=== PATIENT | female | born 1950 | race Caucasian/White ===

== ENCOUNTER 2017-12-25 20:27 | Emergency (ER) | payer MEDICARE ==
[~2017-12-25] VITALS: Ht 160 cm; Wt 112.0 kg
[2017-12-25 20:31] VITALS: BP 137/84
[2017-12-25] MEDS ORDERED: LORazepam 2 MG/ML, 1ML IVPush ONE (21:00)
[2017-12-25] MEDS ORDERED: LORazepam 2 MG/ML, 1ML ONE (21:15)
== END 2017-12-25 23:26 | disposition short-term general hospital (02) ==
LOC: ED 22:55
DX: M54.5 Low back pain (principal); M54.6 Pain in thoracic spine; G89.29 Other chronic pain; Z87.891 Personal history of nicotine dependence
CPT/HCPCS: 72072; 72110; 96374; 99284; J2060

== ENCOUNTER 2018-06-15 18:14 | Inpatient (IN) | payer MEDICARE, MEDICAID ==
[~2018-06-15] VITALS: Ht 167.6 cm; Wt 87.0 kg
[2018-06-15] MEDS ORDERED: FLUO20CA8 PO (18:49)
[2018-06-15] MEDS ORDERED: ASPI-515 PO (18:49)
[2018-06-15] MEDS ORDERED: SENN1TAB8 PO (18:49)
[2018-06-15] MEDS ORDERED: FURO20TA3 PO (18:49)
[2018-06-15] MEDS ORDERED: OLOP2.5D OP (18:49)
[2018-06-15] MEDS ORDERED: SPIR25TA5 PO (18:49)
[2018-06-15] MEDS ORDERED: RIFA550T4 PO (18:49)
[2018-06-15] MEDS ORDERED: HYDROcodone/APAP 5/325 TABLET PO ONE (19:00)
[2018-06-15] MEDS ORDERED: HYDROcodone/APAP 5/325 TABLET ONE (19:03)
[2018-06-15] MEDS ORDERED: MORPHINE SULFATE 4 MG/ML, 1ML ONE (19:50)
[2018-06-15 19:53] LABS: MICROSCOPIC NOT IND
[2018-06-15 19:55] LABS: BASOPHILS # (AUTO) 0.06 x10^3/uL (0-0.1); BASOPHILS % (AUTO) 1 % (0-1); EOSINOPHILS # (AUTO) 0.35 x10^3/uL (0-0.4); EOSINOPHILS % (AUTO) 6 % (1-7); LYMPHOCYTES # (AUTO) 1.17 x10^3/uL (1-3.4); LYMPHOCYTES % (AUTO) 20 % (22-44); MD NO; MEAN CORPUSCULAR HEMOGLOBIN 28.8 pg (27.0-34.8); MEAN CORPUSCULAR HGB CONC 32.9 g/dL (32.4-35.8); MEAN CORPUSCULAR VOLUME 87.4 fL (80-100); MEAN PLATELET VOLUME 6.2 fL (7.4-10.4); MONOCYTES % (AUTO) 12 % (2-9); NEUTROPHILS # (AUTO) 3.51 x10^3/uL (1.8-6.8); NEUTROPHILS % (AUTO) 61 % (42-75); PLATELET COUNT 277 x10^3/uL (130-400); RED BLOOD COUNT 3.43 x10^6/uL (3.82-5.3); RED CELL DISTRIBUTION WIDTH 21.3 % (9.6-15.2)
[2018-06-15] MEDS ORDERED: MORPHINE SULFATE 4 MG/ML, 1ML IVPush ONE (20:00)
[2018-06-15] MEDS ORDERED: SODIUM CHLORIDE FLUSH 10ML SYR IVF ONE (20:00)
[2018-06-15 20:01] LABS: CULTURE INDICATED? NO
[2018-06-15 20:02] LABS: ALBUMIN 2.6 g/dL (3.4-5.0); ANION GAP 8 mmol/L (5-15); CALCIUM 8.4 mg/dL (8.5-10.1); CHLORIDE 105 mmol/L (98-107)
[2018-06-15 20:26] LABS: INTERNATIONAL NORMALIZED RATIO 1.13 (0.93-1.1); PROTHROMBIN TIME 11.6 Seconds (9.6-11.5)
[2018-06-15] MEDS ORDERED: ONDANSETRON ODT 4 MG PO PRN (21:00)
[2018-06-15] MEDS ORDERED: ACETAMINOPHEN 500 MG TABLET PO PRN (21:00)
[2018-06-15] MEDS ORDERED: hydrALAzine 20 MG/ML, 1ML IVPush PRN (21:00)
[2018-06-15] MEDS ORDERED: ONDANSETRON 2MG/ML, 2ML IVPush PRN (21:00)
[2018-06-15] MEDS ORDERED: OMNIPAQUE 350 MG/ML, 100ML BOTTLE ONE (21:01)
[2018-06-15 22:00] VITALS: BP 121/76
[2018-06-15] MEDS: SODIUM CHLORIDE 0.9% 1,000 ML IV SCH (23:14)
[2018-06-15] MEDS: KETOROLAC 30 MG/1 ML IV PRN (23:15)
[2018-06-15] MEDS: RIFAXIMIN 550 MG TABLET PO SCH (23:15)
[2018-06-16] MEDS: HYDROcodone/APAP 5/325 TABLET PO PRN ×4 (01:39→16:18)
[2018-06-16 02:40] VITALS: BP 102/63
[2018-06-16 05:22] LABS: ANION GAP 7 mmol/L (5-15); CALCIUM 8.2 mg/dL (8.5-10.1); CHLORIDE 105 mmol/L (98-107); CREATININE 1.04 mg/dL (0.55-1.02)
[2018-06-16 05:31] LABS: MEAN CORPUSCULAR HEMOGLOBIN 28.5 pg (27.0-34.8); MEAN CORPUSCULAR HGB CONC 32.6 g/dL (32.4-35.8); MEAN CORPUSCULAR VOLUME 87.3 fL (80-100); MEAN PLATELET VOLUME 6.3 fL (7.4-10.4); PLATELET COUNT 248 x10^3/uL (130-400); RED BLOOD COUNT 3.14 x10^6/uL (3.82-5.3); RED CELL DISTRIBUTION WIDTH 21.3 % (9.6-15.2)
[2018-06-16 05:44] LABS: BASOPHILS # (AUTO) 0.07 x10^3/uL (0-0.1); BASOPHILS % (AUTO) 1 % (0-1); EOSINOPHILS # (AUTO) 0.47 x10^3/uL (0-0.4); EOSINOPHILS % (AUTO) 8 % (1-7); LYMPHOCYTES # (AUTO) 1.62 x10^3/uL (1-3.4); LYMPHOCYTES % (AUTO) 29 % (22-44); MD SCAN; MONOCYTES # (AUTO) 0.62 x10^3/uL (0.2-0.8); MONOCYTES % (AUTO) 11 % (2-9); NEUTROPHILS % (AUTO) 50 % (42-75)
[2018-06-16] MEDS: FLUOXETINE HCL 20 MG CAPSULE PO SCH (07:52)
[2018-06-16] MEDS: RIFAXIMIN 550 MG TABLET PO SCH ×2 (07:52→20:38)
[2018-06-16] MEDS: SENNA/DOCUSATE TABLET PO SCH (07:52)
[2018-06-16] MEDS: POLYETHYLENE GLYCOL 17 GM PACKET PO SCH (07:52)
[2018-06-16] MEDS: KETOROLAC 30 MG/1 ML IV PRN ×2 (07:53→16:18)
[2018-06-16] MEDS: TEMPLATE NON-FORMULARY MED. (Olopatadine Hcl (Pataday) 1 DROP) OP SCH (07:58)
[2018-06-16] MEDS: SPIRONOLACTONE 25 MG TABLET PO SCH (07:58)
[2018-06-16] MEDS: ASPIRIN 81 MG TABLET EC PO SCH (07:58)
[2018-06-16 09:57] VITALS: BP 97/61
[2018-06-16] MEDS: MAGNESIUM OXIDE 400 MG TABLET PO SCH ×2 (10:15→20:38)
[2018-06-16] MEDS: SODIUM CHLORIDE 0.9% 1,000 ML IV SCH ×2 (10:35→23:33)
[2018-06-16] MEDS: GABAPENTIN 300 MG CAPSULE PO SCH ×3 (10:37→20:38)
[2018-06-16] MEDS: POTASSIUM CHLORIDE 20 MEQ TAB.ER.PRT PO SCH (16:18)
[2018-06-16 19:38] VITALS: BP 112/56
[2018-06-17 02:03] VITALS: BP 112/59
[2018-06-17] MEDS: HYDROcodone/APAP 5/325 TABLET PO PRN ×4 (03:01→20:56)
[2018-06-17 04:59] LABS: MEAN CORPUSCULAR HEMOGLOBIN 28.6 pg (27.0-34.8); MEAN CORPUSCULAR HGB CONC 32.7 g/dL (32.4-35.8); MEAN CORPUSCULAR VOLUME 87.6 fL (80-100); MEAN PLATELET VOLUME 6.5 fL (7.4-10.4); PLATELET COUNT 240 x10^3/uL (130-400); RED BLOOD COUNT 3.12 x10^6/uL (3.82-5.3); RED CELL DISTRIBUTION WIDTH 21.3 % (9.6-15.2)
[2018-06-17 05:07] LABS: ALBUMIN 2.2 g/dL (3.4-5.0); ANION GAP 9 mmol/L (5-15); CHLORIDE 108 mmol/L (98-107)
[2018-06-17 05:18] LABS: BASOPHILS % (AUTO) 2 % (0-1); EOSINOPHILS # (AUTO) 0.43 x10^3/uL (0-0.4); EOSINOPHILS % (AUTO) 8 % (1-7); LYMPHOCYTES # (AUTO) 1.21 x10^3/uL (1-3.4); LYMPHOCYTES % (AUTO) 23 % (22-44); MD MORPH REVIEW ONLY; MONOCYTES # (AUTO) 0.57 x10^3/uL (0.2-0.8); MONOCYTES % (AUTO) 11 % (2-9); NEUTROPHILS # (AUTO) 2.98 x10^3/uL (1.8-6.8); NEUTROPHILS % (AUTO) 56 % (42-75)
[2018-06-17 05:19] LABS: ANISOCYTOSIS 1+; OVALOCYTES 1+; POLYCHROMASIA 1+
[2018-06-17 05:21] LABS: <PLATELET ESTIMATE> ADEQUATE; <PLT MORPHOLOGY> NORMAL PLT MORPH
[2018-06-17 05:33] LABS: % IRON SATURATION 16 % (20-55); ALANINE AMINOTRANSFERASE 13 U/L (12-78); ALKALINE PHOSPHATASE 129 U/L (45-117); BILIRUBIN,TOTAL 0.7 mg/dL (0.2-1.0); CREATININE 1.18 mg/dL (0.55-1.02); IRON LEVEL 31 mcg/dL (50-170); TOTAL IRON BINDING CAPACITY 193 mcg/dL (250-450); TOTAL PROTEIN 5.6 g/dL (6.4-8.2)
[2018-06-17] MEDS: KETOROLAC 30 MG/1 ML IV PRN ×2 (07:21→12:58)
[2018-06-17 08:24] VITALS: BP 120/72
[2018-06-17] MEDS: FLUOXETINE HCL 20 MG CAPSULE PO SCH (08:42)
[2018-06-17] MEDS: POLYETHYLENE GLYCOL 17 GM PACKET PO SCH (08:42)
[2018-06-17] MEDS: GABAPENTIN 300 MG CAPSULE PO SCH ×3 (08:42→20:56)
[2018-06-17] MEDS: POTASSIUM CHLORIDE 20 MEQ TAB.ER.PRT PO SCH ×2 (08:43→16:29)
[2018-06-17] MEDS: SENNA/DOCUSATE TABLET PO SCH (08:43)
[2018-06-17] MEDS: TEMPLATE NON-FORMULARY MED. (Olopatadine Hcl (Pataday) 1 DROP) OP SCH (08:43)
[2018-06-17] MEDS: SPIRONOLACTONE 25 MG TABLET PO SCH (08:43)
[2018-06-17] MEDS: RIFAXIMIN 550 MG TABLET PO SCH ×2 (08:43→20:56)
[2018-06-17] MEDS: ASPIRIN 81 MG TABLET EC PO SCH (08:43)
[2018-06-17] MEDS: MAGNESIUM OXIDE 400 MG TABLET PO SCH ×2 (08:43→20:56)
[2018-06-17] MEDS: SODIUM CHLORIDE 0.9% 1,000 ML IV SCH (12:54)
[2018-06-17 14:20] VITALS: BP 127/82
[2018-06-17 19:14] VITALS: BP 122/66
[2018-06-18] MEDS: HYDROcodone/APAP 5/325 TABLET PO PRN ×4 (00:54→14:39)
[2018-06-18 01:02] VITALS: BP 105/64
[2018-06-18] MEDS ORDERED: DIAZEPAM 5 MG TABLET ONE (01:09)
[2018-06-18] MEDS: SODIUM CHLORIDE 0.9% 1,000 ML IV SCH ×2 (01:16→14:44)
[2018-06-18] MEDS ORDERED: DIAZEPAM 5 MG TABLET PO ONE (01:30)
[2018-06-18 08:00] VITALS: BP 108/44
[2018-06-18] MEDS: TEMPLATE NON-FORMULARY MED. (Olopatadine Hcl (Pataday) 1 DROP) OP SCH (09:00)
[2018-06-18] MEDS: POLYETHYLENE GLYCOL 17 GM PACKET PO SCH (09:33)
[2018-06-18] MEDS: RIFAXIMIN 550 MG TABLET PO SCH (09:34)
[2018-06-18] MEDS: MAGNESIUM OXIDE 400 MG TABLET PO SCH (09:34)
[2018-06-18] MEDS: GABAPENTIN 300 MG CAPSULE PO SCH ×2 (09:34→16:00)
[2018-06-18] MEDS: SENNA/DOCUSATE TABLET PO SCH (09:34)
[2018-06-18] MEDS: ASPIRIN 81 MG TABLET EC PO SCH (09:34)
[2018-06-18] MEDS: SPIRONOLACTONE 25 MG TABLET PO SCH (09:34)
[2018-06-18] MEDS: FLUOXETINE HCL 20 MG CAPSULE PO SCH (09:34)
[2018-06-18 12:40] VITALS: BP 119/70
[2018-06-18] MEDS ORDERED: HYDR-3240 PO (13:12)
[2018-06-18] MEDS ORDERED: GABA300C10 PO (13:12)
[2018-06-18] MEDS ORDERED: MORP15TA3 PO (13:12)
== END 2018-06-18 17:45 | DRG 551 ==
LOC: ED 18:55 → EDIP 20:31 → SUATTDRO 20:38 → 4NOR 21:45
PROVIDERS: ADMIT Hospitalist; ATTEND Family Medicine
DX: S32.10XA Unspecified fracture of sacrum, initial encounter for closed fracture (principal); E43 Unspecified severe protein-calorie malnutrition; S32.591A Other specified fracture of right pubis, initial encounter for closed fracture; F11.20 Opioid dependence, uncomplicated; N39.0 Urinary tract infection, site not specified; D62 Acute posthemorrhagic anemia; W01.0XXA Fall on same level from slipping, tripping and stumbling without subsequent striking against object, initial encounter; Z96.611 Presence of right artificial shoulder joint; G89.4 Chronic pain syndrome; S70.11XA Contusion of right thigh, initial encounter; S30.0XXA Contusion of lower back and pelvis, initial encounter; E83.42 Hypomagnesemia; I10 Essential (primary) hypertension; F32.9 Major depressive disorder, single episode, unspecified; E87.6 Hypokalemia; Y93.89 Activity, other specified; Y92.89 Other specified places as the place of occurrence of the external cause; Y99.8 Other external cause status; Z87.891 Personal history of nicotine dependence; Z79.899 Other long term (current) drug therapy
CPT/HCPCS: 36415; 72193; 80048; 80053; 81003; 82040; 82607; 82728; 83540; 83550; 83735; 84100; 85025; 85610; 85730; 96374; 99285; G0378; J1885; Q9967; J7030